=== PATIENT | female | born 1960 | race Caucasian/White ===

== ENCOUNTER 2016-05-20 06:50 | Day surgery (SDC) | payer OTHER ==
[2016-05-19 14:15] VITALS: BMI 34.3
[2016-05-20 08:18] LABS: URINE APPEARANCE CLEAR; URINE BILIRUBIN NEGATIVE (NEGATIVE); URINE BLOOD NEGATIVE (NEGATIVE); URINE COLOR LTYELLOW; URINE GLUCOSE (UA) NEGATIVE (NEGATIVE); URINE KETONE NEGATIVE (NEGATIVE); URINE LEUK ESTERASE NEGATIVE (NEGATIVE); URINE NITRITE NEGATIVE (NEGATIVE); URINE PROTEIN NEGATIVE (NEGATIVE); URINE UROBILINOGEN NEGATIVE E.U./dl (0.2-1.0)
[2016-05-20] MEDS ORDERED: ROPIVACAINE HCL 0.5% 30ML VIAL ONE (08:24)
[2016-05-20] MEDS ORDERED: MIDAZOLAM HCL 2 MG/2 ML SINGLE DOSE VIAL ONE ×2 (08:27)
[2016-05-20] MEDS ORDERED: PROPOFOL 20 ML ONE (09:49)
[2016-05-20] MEDS ORDERED: DEXAMETHASONE SOD PHOSPHATE 4 MG/1 ML VIAL ONE (09:59)
[2016-05-20] MEDS ORDERED: KETOROLAC TROMETHAMINE 30 MG/1 ML VIAL ONE (09:59)
[2016-05-20] MEDS ORDERED: ceFAZolin SODIUM 1 GM VIAL ONE (09:59)
[2016-05-20] MEDS ORDERED: ceFAZolin SODIUM 1 GM VIAL IVPB ONE (10:03)
[2016-05-20] MEDS ORDERED: ePHEDrine SULFATE 50 MG/1 ML AMPULE ONE (10:22)
--- NOTE | 2016-05-20 11:13 | HP ---
Satellite [facility] - Chief Complaint Chief Complaint: right shoulder pain History Source: Patient Limitations to Obtaining History: No Limitations - Past Medical History Allergies/Adverse Reactions: Allergies Allergy/AdvReac Type Severity Reaction Status Date / Time No Known Drug Allergies Allergy Verified 05/20/16 07:52 - Current Medications Current Medications: Home Medications Medication Instructions Recorded Amlodipine Besylate [Norvasc -] 2.5 mg PO DAILY 05/19/16 Naproxen [Naprosyn -] 500 mg PO BID 05/19/16 Omeprazole 20 mg PO DAILY 05/19/16 Satellite Physical Exam - Physical Examination Vital Signs: Vital Signs Period Temp Pulse Resp BP Sys/S[place] Pulse Ox Last 24 Hr 97.6 F 70 18 128/84 98 Extremities: Other (+ impingement sign and weakness with TDA) Satellite Impression/Plan - Impression/Plan Impression: right rotator cuff tear Operative Procedure: arthroscopy right shoulder with debridement and RC repair Date to be Performed: 05/20/16
--- NOTE | 2016-05-20 11:14 | OP ---
Operative Note - Note: Operative Date: 05/20/16 Pre-Operative Diagnosis: right RC tear Operation: right shoulder arthroscopy and debridement with RC repair Post-Operative Diagnosis: Same as Pre-op Surgeon: Manny Barboza Anesthesia: General, Local Estimated Blood Loss (mls): 0 Operative Report Dictated: Yes
[2016-05-20 12:07] VITALS: TEMP 98
[2016-05-20 15:11] VITALS: BP 118/77; PULSE 80
--- NOTE | 2016-05-20 21:21 | OP ---
DATE OF OPERATION: 05/20/2016 PREOPERATIVE DIAGNOSIS: Right rotator cuff tear. POSTOPERATIVE DIAGNOSIS: Right rotator cuff tear. PROCEDURE: Arthroscopy, right shoulder subacromial debridement of bone and soft tissue, and arthroscopic right rotator cuff repair. SURGICAL ATTENDING: Manny Barboza MD ANESTHESIA: Regional and general. CLOSURE: FiberTape and Swivel-Lock for rotator cuff and 3-0 nylon for skin. ESTIMATED BLOOD LOSS: Negligible. COMPLICATIONS: None. CONDITION: To recovery room in stable condition. DESCRIPTION: Patient taken to the operating room on May 20, 2016. Regional and general anesthesia was administered by the anesthesiologist. IV Kefzol was given prophylactically prior to the case. Patient was placed in the beach chair position with all prominences well padded. The right shoulder area was prepped and draped in the usual sterile fashion. First an exam of the glenohumeral joint was performed. The posterior portals were made 2 fingerbreadths below the acromion, first with a 15 blade followed by blunt trocar. Circumferential exam of the glenohumeral joint revealed the following: Intact glenoid and humeral head articular cartilage, intact biceps and biceps anchor, intact labrum circumferentially. No loose bodies in the axillary pouch. Subscapularis was good to its insertion. There was a small tear of the anterior portion of the supraspinatus. The rest of the rotator cuff was found to be intact. Fluid was drained from the shoulder and trocar was removed. The posterior trocar was redirected in the subacromial space. Accessory lateral portal was made with 15 blade followed by blunt trocar. Bursectomy was performed using the ArthroCare device. An acromionizer bur was used to bur the acromion up to the appropriate level, gaining sufficient height for the rotator cuff beneath. Soft tissue encasing the humeral head was debrided using ArthroCare device and a shaver, exposing the rotator cuff below. There was a small anterior full-thickness tear of the supraspinatus tendon. A FiberTape suture was placed using the Brencoio needle punch underneath. Both limbs were placed underneath the exiting on the superior surface forming a horizontal mattress suture. This was done through shuttling each one at a time through an anterior portal. Once both sutures were placed in a good position, they were shuttled back through the lateral portal. Traction was easily able to pull the rotator cuff to greater tuberosity. The Swivel-Lock anchor was then deployed into the greater tuberosity and screwed into place, fixating the FiberTape suture. The sutures were then cut flush. Range of motion revealed good stability of the repair with good space in the subacromial space for the rotator cuff repair. The shoulder was irrigated. The portals were closed with 3-0 nylon horizontal mattress suture. A sterile pressure dressing following by a sling was placed. Patient awakened from anesthesia and transferred to the recovery room in stable condition. No complication. Estimated blood loss negligible. Tram [id number]
--- NOTE | 2016-05-21 14:48 | PATH ---
Surgical Pathology Report Patient Name: FARIDEH GAMA [facility]. Rec. #: [id number] /Age/Gender: 1960 (Age: 55) / F Account: [id number] Location: [facility] SURGICAL Taken: 05/20/2016 Received: 05/20/2016 Reported: 05/21/2016 Physicians: Manny Barboza M.D. Specimen(s) Received SHAVINGS Clinical History Tear right shoulder Final Diagnosis RIGHT SHOULDER, ARTHROSCOPIC SHAVING: PORTIONS OF SYNOVIUM, CARTILAGE, SKELETAL MUSCLE AND BONE CONSISTENT WITH ARTHROSCOPIC SHAVINGS. Electronically Signed Inderjit Terry M.D. Gross Description Received in formalin, labeled "right shoulder shavings," is a 3.0 x 2.8 x 0.3 cm. aggregate of gann-yellow soft tissue fragments. A security representative portion is submitted in one cassette. /05/20/201605/20/2016
== END 2016-05-20 13:45 | disposition home or self-care (01) ==
LOC: JASU-SURG 06:50
PROVIDERS: ATTEND Orthopaedic Surgery
PROC: 0LQ14ZZ Repair Right Shoulder Tendon, Percutaneous Endoscopic Approach (ICD-10-PCS; 2016-05-20)
PROC: 0RBJ4ZZ Excision of Right Shoulder Joint, Percutaneous Endoscopic Approach (ICD-10-PCS; principal; 2016-05-20 09:30)
PROC: 0RNJ4ZZ Release Right Shoulder Joint, Percutaneous Endoscopic Approach (ICD-10-PCS; 2016-05-20 09:30)
DX: M75.101 Unspecified rotator cuff tear or rupture of right shoulder, not specified as traumatic (principal)
CPT/HCPCS: 81003; 88304-TC; 94760